=== PATIENT | male | born 1980 | race Caucasian/White ===

== ENCOUNTER 2018-11-25 12:38 | Outpatient (CLI) | payer OTHER ==
--- NOTE | 2018-11-25 14:55 | RAD ---
LEFT WRIST 2 VIEWS: Date: 11/25/18 INDICATION: Chronic wrist pain. COMPARISON: None. IMPRESSION: No acute fracture or subluxation is evident. Carpal alignment is preserved. Soft tissues normal appea ring. POS: CET
--- NOTE | 2018-11-25 14:56 | RAD ---
RIGHT WRIST 2 VIEWS: Date: 11/25/18 INDICATION: Right wrist pain. COMPARISON: None. IMPRESSION: No acute fracture or subluxation is evident. Carpal alignment is preserved. Soft tissues are normal a ppearing. POS: CET
== END 2018-11-25 12:39 | disposition home or self-care (01) ==
LOC: MADRAD 12:38
PROVIDERS: ATTEND Orthopaedic Surgery
DX: M25.531 Pain in right wrist (principal); M25.532 Pain in left wrist

== ENCOUNTER 2019-08-09 10:33 | Outpatient (CLI) | payer OTHER ==
[2019-08-09 11:19] LABS: ALT (SGPT) 25 U/L (8-55); AST (SGOT) 15 U/L (5-34); Albumin 4.4 g/dL (3.5-5.0); Alkaline Phosphatase 53 U/L (40-110); Anion Gap 14 mmol/L (10-20); BUN (Urea Nitrogen) 11 mg/dL (8.9-20.6); Bilirubin, Total 0.7 mg/dL (0.2-1.2); Calc. Creatinine Clearance 0 mL/min (70-130); Calcium 9.6 mg/dL (7.8-10.44); Carbon Dioxide 27 mmol/L (22-29); Chloride 103 mmol/L (98-107); Estimated GFR-MDRD 71; Globulin 3.3 g/dL (2.4-3.5); Glucose 92 mg/dL (70-105); Potassium 4.3 mmol/L (3.5-5.1); Protein, Total 7.7 g/dL (6.0-8.3); Sodium 140 mmol/L (136-145)
[2019-08-09 11:20] LABS: #Basophils 0.1 thou/uL (0.0-0.2); #Eosinphils 0.2 thou/uL (0.0-0.7); #Lymphocytes 1.8 thou/uL (1.20-3.40); #Monocytes 0.4 thou/uL (0.11-0.59); #Neutrophils 4.2 thou/uL (1.40-6.50); %Basophils 1.1 % (0.0-1.0); %Eosinophils 2.3 % (0.0-10.0); %Lymphocytes 27.6 % (21.0-51.0); %Monocytes 5.5 % (0.0-10.0); %Neutrophils 63.4 % (42.0-75.0); Hemoglobin 14.2 g/dL (14.0-18.0); Mean Corpuscular HGB CONC 30.8 g/dL (32.0-36.0); Mean Corpuscular Hemoglobin 27.4 pg (27.0-31.0); Mean Corpuscular Volume 89.2 fL (78.0-98.0); Mean Platelet Volume 6.5 fL (7.4-10.4); Platelet Count 258 thou/uL (130-400); RBC Distribution Width 12.1 % (11.5-14.5); Red Blood Cell (RBC) Count 5.19 mill/uL (4.70-6.10); White Blood Cell (WBC) Count 6.7 thou/uL (4.8-10.8)
== END 2019-08-09 10:34 | disposition home or self-care (01) ==
LOC: MADLABBHPM 10:33
PROVIDERS: ATTEND Family Medicine
DX: R07.89 Other chest pain (principal); R00.2 Palpitations
CPT/HCPCS: 36415; 80053; 84443; 85025; 93005; 93010